=== PATIENT | male | born 1990 | race Two or more races ===

== ENCOUNTER 2019-11-30 08:36 | Emergency (ER) | payer OTHER ==
[2019-11-30 09:01] VITALS: BP 145/85; PULSE 74; TEMP 98.8; BMI 30.2
--- NOTE | 2019-11-30 09:21 | PDOC ---
History of Present Illness - General Chief Complaint: Pain Stated Complaint: LWR ABD PAIN Time Seen by Provider: 11/30/19 09:09 History Source: Patient - History of Present Illness Timing/Duration: reports: intermittent Quality: reports: moderate Abdominal Pain Onset Location: reports: RLQ Past History - Medical History Allergies/Adverse Reactions: Allergies Allergy/AdvReac Type Severity Reaction Status Date / Time Penicillins Allergy Verified 11/30/19 09:31 Home Medications: Ambulatory Orders Amlodipine Besylate 10 mg PO ONCE 04/07/19 Lisinopril/Hydrochlorothiazide [Lisinopril-Hctz 20-25 mg Tab] 1 each PO ONCE 04/07/19 COPD: Yes HTN: Yes - Immunization History Immunization Up to Date: Yes - Psycho-Social/Smoking History Smoking History: Never smoked Have you smoked in the past 12 months: No - Substance Abuse Hx (Audit-C & DAST Scrn) How often the patient has a drink containing alcohol: Never Score: In Men: 4 or > Positive; In Women: 3 or > Positive: 0 Screen Result (Pos requires Nsg. Audit-10AR): Negative In the last yr the pt used illegal drug/Rx for NonMed reason: No Score: Yes response is considered Positive: 0 Screen Result (Positive result requires Nsg. DAST-10): Negative Review of Systems - Review of Systems Constitutional: No: Chills, Fever ABD/GI: No: Blood Streaked Bowels, Constipated, Diarrhea, Nausea, Rectal Bleeding, Vomiting : No: Dysuria, Flank Pain, Hematuria *Physical Exam - Vital Signs Last Vital Signs Temp Pulse Resp BP Pulse Ox 98.8 F 74 15 145/85 99 11/30/19 08:57 11/30/19 08:57 11/30/19 08:57 11/30/19 08:57 11/30/19 08:57 - Physical Exam General Appearance: Yes: Appropriately Dressed. No: Apparent Distress HEENT: positive: Normal Voice Neck: positive: Supple Respiratory/Chest: negative: Respiratory Distress Gastrointestinal/Abdominal: positive: Normal Bowel Sounds, Tender, Soft. negative: Distended, Guarding, Rebound Musculoskeletal: negative: CVA Tenderness Integumentary: positive: Dry, Warm Neurologic: positive: Fully Oriented, Alert, Normal Mood/Affect ED Treatment Course - LABORATORY CBC & Chemistry Diagram: 11/30/19 09:50 11/30/19 09:50 Medical Decision Making - Medical Decision Making 11/30/19 09:19 29 yo M, history of hypertension, here with intermittent RLQ pain x2 weeks. No change in bowel movements, nausea, vomiting, fever, chills or dysuria. States he had similar pain 1 year ago and was seen in an urgent care who referred him to the ER for CT but that he never ended up going to the ER. States pain cu rrently 4/10 see exam RLQ pain Unlikely appy or renal colic given duration (>2 weeks) Stable and well shaw w/ ?minimal ttp to RLQ -labs and CT 11/30/19 11:[address] normal. Pt remains well shaw and stable here w/ no sig ttp on rpt abd exam. Will dc to f/u with PMD if sxs persist Discharge - Discharge Information Problems reviewed: Yes Clinical Impression/Diagnosis: RLQ abdominal pain Condition: Good Disposition: HOME - Follow up/Referral - Patient Discharge Instructions Patient Printed Discharge Instructions: DI for Abdominal Pain-Adult Additional Instructions: The cause of your symptoms are unclear at this time as your labs and CAT scan were normal If pain persist, please follow-up with your PMD - Post Discharge Activity Work/Back to School Note: Back to Work
[2019-11-30 10:38] LABS: PH,URINE 6.5 (5.0-8.0); URINE APPEARANCE CLEAR; URINE BILIRUBIN NEGATIVE (NEGATIVE); URINE COLOR YELLOW; URINE GLUCOSE (UA) NEGATIVE (NEGATIVE); URINE KETONE NEGATIVE (NEGATIVE); URINE LEUK ESTERASE NEGATIVE (NEGATIVE); URINE NITRITE NEGATIVE (NEGATIVE); URINE PROTEIN NEGATIVE (NEGATIVE); URINE UROBILINOGEN 0.2 mg/dL (0.2-1.0)
[2019-11-30 10:48] LABS: BASO % 0.2 % (0-2.0); EOS % 1.1 % (0-4.5); HEMATOCRIT 48.7 % (35.4-49); HEMOGLOBIN 16.7 GM/dL (11.7-16.9); LYMPH % 29.3 % (8-40); MCH 30.9 pg (25.7-33.7); MCHC 34.2 g/dl (32.0-35.9); MEAN CELL VOLUME 90.3 fl (80-96); MEAN PLT VOLUME 10.2 fl (7.5-11.1); MONO % 10.5 % (3.8-10.2); NEUT % 58.9 % (42.8-82.8); PLATELET COUNT 202 K/MM3 (134-434); RBC 5.39 M/mm3 (4.00-5.60); RDW 13.7 % (11.9-15.9); WHITE BLOOD COUNT 5.2 K/mm3 (4.0-10.0)
[2019-11-30 11:10] LABS: ALBUMIN 4.4 g/dl (3.4-5.0); BILIRUBIN,TOTAL 0.8 mg/dL (0.2-1); CALCIUM 9.6 mg/dL (8.5-10.1); POTASSIUM 4.1 mmol/L (3.5-5.1)
[2019-11-30 11:36] LABS: PLATELET ESTIMATE NORMAL
== END 2019-11-30 12:09 | disposition home or self-care (01) ==
LOC: JER 08:36
DX: R10.11 Right upper quadrant pain (principal)
CPT/HCPCS: 36415; 74177-TC; 80053; 81003; 85025; 99285-25; Q9967

== ENCOUNTER 2020-11-07 17:25 | Emergency (ER) | payer OTHER ==
[2020-11-07 17:50] VITALS: BP 126/83; PULSE 81; TEMP 98; BMI 29.5
== END 2020-11-07 19:00 | disposition left against medical advice (07) ==
LOC: JERFT 17:25
DX: N48.89 Other specified disorders of penis (principal)
CPT/HCPCS: 36415; 87491; 87591; 99283-25